=== PATIENT | male | born 1950 | race Caucasian/White ===

== ENCOUNTER 2018-08-15 03:39 | Observation (INO) ==
--- NOTE | 2018-08-15 04:18 | ED ---
HPI General Chief Complaint: Fall Stated Complaint: Fall Time Seen by Provider: 08/15/18 03:48 Source: patient and EMS Mode of arrival: EMS Limitations: no limitations History of Present Illness HPI Narrative: 67-year-old male patient presents to the ER today, states that he got dizzy, fell backward hitting his head against the wall of the bathroom, had a loss of consciousness, and is now complaining of left hip pain. He was able to crawl out the bathroom several hours later, called the back, is brought in by ambulance. He complains of left hip pain, headache, but denies any other injuries. He denies any chest pains, trouble breathing, vomiting, or other symptoms. Modifying Factors: None Associated Signs & Symptoms: Dizziness, fall, head injury, left hip injury Risk Factors: Elderly Related Data Allergies Allergy/AdvReac Type Severity Reaction Status Date / Time codeine Allergy Unknown unknown Verified 08/15/18 04:10 Review of Systems ROS: all other systems reviewed are negative FOR[facility]LY [facility] Medical History Medical History Agent orange exposure (Acute) Emphysema lung (Acute) Pacemaker (Acute) Parkinson disease (Acute) Social History Social History Substance History: No History of Abuse Smoking Status: Current every day smoker Tobacco Type: Cigarettes How Often Do You Have a Drink Containing Alcohol: 2 to 3 times a week Recent Travel in [facility] within the Last 8 Weeks: No Recent Out of Country Travel within the Last 8 Weeks: No Immunization History Tetanus Immunization: Unsure Exam Narrative Exam Narrative: GENERAL: Well-developed elderly male patient currently in moderate distress. Awake, alert, oriented x3. Tremulous with pill-rolling. SKIN: Focused skin assessment warm/dry. HEAD: Atraumatic. Normocephalic. EYES: Pupils equal and round. No scleral icterus. No injection or drainage. ENT: No nasal bleeding or discharge. Mucous membranes pink and moist. NECK: Trachea midline. No JVD. CARDIOVASCULAR: Regular rate and rhythm. No murmur appreciated. RESPIRATORY: No accessory muscle use. Clear to auscultation. Breath sounds equal bilaterally. GASTROINTESTINAL: Abdomen soft, non-tender, nondistended. Hepatic and splenic margins not palpable. MUSCULOSKELETAL: No obvious deformities. No clubbing. No cyanosis. No edema. Pelvis stable, tender to palpation of the left hip area. Neurovascularly intact below the left hip injury. No obvious deformities identified. Equal leg lengths. NEUROLOGICAL: Awake and alert. No obvious cranial nerve deficits. Motor grossly within normal limits. Normal speech. Pill-rolling tremors. PSYCHIATRIC: Appropriate mood and affect; insight and judgment normal. Course Initial Documented Vital Signs Pulse Rate 84 08/15/18 04:00 Blood Pressure 129/79 08/15/18 04:00 Pulse Oximetry 100 08/15/18 04:00 Last Documented Vital Signs Pulse Rate 84 08/15/18 04:07 Blood Pressure 129/79 08/15/18 04:07 Pulse Oximetry 100 08/15/18 04:07 Medical Decision Making MDM Narrative Medical decision making narrative: Lab work is fairly unremarkable. EKG shows a paced rhythm. X-rays did not show any signs of obvious acute fractures of the hip. Chest x-ray was unremarkable. However, when the patient is stood up in order to walk to the bathroom, he literally is not able to put much weight on his right hip, and is having difficulty walking. He lives alone, and at this point, there is concern for need for PT and patient well-being if I were to release him home. My plan will be to admit him at this point for further evaluation of his dizziness episode as well as ambulation. He states he feels weak on the right leg due to pain. Case is discussed with Dr. Gonzalez for admission. Medical Screen Exam Complete: Yes Emergency Medical Condition: Yes Differential Diagnosis Differential Diagnosis: Syncope versus intracranial injuries versus vertigo versus electrolyte abnormalities Lab Data Lab results reviewed: Yes I reviewed the patient's lab results. Result diagrams: 08/15/18 04:15 08/15/18 04:15 Lab Results 08/15/18 08/15/18 08/15/18 Range/Units 04:15 04:15 05:48 WBC 9.3 (4.0-11.0) th/mm3 RBC 4.31 L (4.50-5.90) mil/mm3 Hgb 14.9 (13.0-17.0) gm/dL Hct 40.9 (39.0-51.0) % MCV 94.8 (80.0-100.0) fL MCH 34.7 H (27.0-34.0) pg MCHC 36.6 H (32.0-36.0) % RDW 12.9 (11.6-17.2) % Plt Count 128 L (150-450) th/mm3 MPV 8.9 (7.0-11.0) fL Prelim Diff (Auto) Slide review pending Neut % (Auto) 82.1 H (16.0-70.0) % Lymph % (Auto) 12.7 (9.0-44.0) % Stanley % (Auto) 4.3 (0.0-8.0) % Eos % (Auto) 0.4 (0.0-4.0) % Baso % (Auto) 0.5 (0.0-2.0) % Neut # (Auto) 7.6 (1.8-7.7) th/mm3 Lymph # (Auto) 1.2 (1.0-4.8) th/mm3 Stanley # (Auto) 0.4 (0.0-0.9) th/mm3 Eos # (Auto) 0.0 (0.0-0.4) th/mm3 Baso # (Auto) 0.0 (0.0-0.2) th/mm3 WBC Differential . Diff Scan Auto diff confirmed Differential Comment . Platelet Estimate Low L (Normal) Platelet Morphology Normal (Normal) Sodium 131 L (136-145) meq/L Potassium 3.9 (3.5-5.1) meq/L Chloride 98 (98-107) meq/L Carbon Dioxide 22.4 (21.0-32.0) meq/L Anion Gap 11 (5-15) meq/L BUN 12 (7-18) mg/dL Creatinine 1.31 H (0.60-1.30) mg/dL Estimated GFR 55 L (>89) mL/min Random Glucose 82 (74-106) mg/dL Calcium 8.7 (8.5-10.1) mg/dL Total Bilirubin 0.7 (0.2-1.0) mg/dL AST 33 (15-37) U/L ALT 48 (12-78) U/L Alkaline Phosphatase 75 (45-117) U/L Troponin I 0.03 (0.02-0.05) ng/mL Total Protein 7.6 (6.4-8.2) g/dL Albumin 4.0 (3.4-5.0) g/dL Urine Color (Yellw/Straw) Urine Clarity (Clear) Urine pH (5.0-8.5) Ur Specific Capulin (1.002-1.035) Urine Protein (Neg-Trace) mg/dL Urine Glucose (UA) (Negative) mg/dL Urine Ketones (Negative) mg/dL Urine Occult Blood (Negative) Urine Nitrate (Negative) Urine Bilirubin (Negative) Urine Urobilinogen (Less than 2) mg/dL Ur Leukocyte Esterase (Negative) Urine RBC (0-3) /hpf Urine WBC (0-5) /hpf Hyaline Casts (0-3) /lpf Urine Mucus (Occasional) /lpf Micro UA Comment Ur Microscopic Review Urine Culture Comments Urine Opiates Screen Neg (Neg) Ur Barbiturates Screen Neg (Neg) Ur Amphetamines Screen Neg (Neg) U Benzodiazepines Scrn Neg (Neg) Urine Cocaine Screen Neg (Neg) U Cannabinoids Screen Neg (Neg) 08/15/18 Range/Units 05:48 WBC (4.0-11.0) th/mm3 RBC (4.50-5.90) mil/mm3 Hgb (13.0-17.0) gm/dL Hct (39.0-51.0) % MCV (80.0-100.0) fL MCH (27.0-34.0) pg MCHC (32.0-36.0) % RDW (11.6-17.2) % Plt Count (150-450) th/mm3 MPV (7.0-11.0) fL Prelim Diff (Auto) Neut % (Auto) (16.0-70.0) % Lymph % (Auto) (9.0-44.0) % Stanley % (Auto) (0.0-8.0) % Eos % (Auto) (0.0-4.0) % Baso % (Auto) (0.0-2.0) % Neut # (Auto) (1.8-7.7) th/mm3 Lymph # (Auto) (1.0-4.8) th/mm3 Stanley # (Auto) (0.0-0.9) th/mm3 Eos # (Auto) (0.0-0.4) th/mm3 Baso # (Auto) (0.0-0.2) th/mm3 WBC Differential Diff Scan Differential Comment Platelet Estimate (Normal) Platelet Morphology (Normal) Sodium (136-145) meq/L Potassium (3.5-5.1) meq/L Chloride (98-107) meq/L Carbon Dioxide (21.0-32.0) meq/L Anion Gap (5-15) meq/L BUN (7-18) mg/dL Creatinine (0.60-1.30) mg/dL Estimated GFR (>89) mL/min Random Glucose (74-106) mg/dL Calcium (8.5-10.1) mg/dL Total Bilirubin (0.2-1.0) mg/dL AST (15-37) U/L ALT (12-78) U/L Alkaline Phosphatase (45-117) U/L Troponin I (0.02-0.05) ng/mL Total Protein (6.4-8.2) g/dL Albumin (3.4-5.0) g/dL Urine Color Yellow (Yellw/Straw) Urine Clarity Clear (Clear) Urine pH 5.0 (5.0-8.5) Ur Specific Capulin 1.009 (1.002-1.035) Urine Protein Negative (Neg-Trace) mg/dL Urine Glucose (UA) Negative (Negative) mg/dL Urine Ketones Trace H (Negative) mg/dL Urine Occult Blood Negative (Negative) Urine Nitrate Negative (Negative) Urine Bilirubin Negative (Negative) Urine Urobilinogen Less than 2 (Less than 2) mg/dL Ur Leukocyte Esterase Negative (Negative) Urine RBC Less than 1 (0-3) /hpf Urine WBC Less than 1 (0-5) /hpf Hyaline Casts 3 (0-3) /lpf Urine Mucus Few H (Occasional) /lpf Micro UA Comment Culture not ind Ur Microscopic Review Not Reportable Urine Culture Comments Culture not ind Urine Opiates Screen (Neg) Ur Barbiturates Screen (Neg) Ur Amphetamines Screen (Neg) U Benzodiazepines Scrn (Neg) Urine Cocaine Screen (Neg) U Cannabinoids Screen (Neg) Imaging Data Attestation: I personally reviewed and interpreted this imaging study as follows : Radiologist's impression: Chest X-Ray 08/15/18 04:10 CONCLUSION: Pacemaker in good position. Lungs are clear. Head CT 08/15/18 04:10 CONCLUSION: 1. Negative CT Head non contrast. . Hip X-Ray 08/15/18 04:10 CONCLUSION: No evidence of recent bony injury. Hip X-Ray 08/15/18 04:32 CONCLUSION: No evidence of an acute fracture. Calcific tendinopathy along the gluteal insertion ECG Data Attestation: I personally reviewed and interpreted this ECG as follows: Interpretation: EKG shows a paced rhythm at a rate of 83 bpm. Discharge Plan Discharge Disposition Patient Disposition: ED Admit(ED Internal Use Only) Discharge Condition Condition: Stable Discharge Order Discharge Orders: ED Use Only Admit Order (Routine); Ordered 08/15/18 Ordered By: Yakov Murray Discharge Details Anticipated Discharge Date: 08/15/18 Diagnosis: Concussion with loss of consciousness, Hip injury, Syncope Physicians Team ED Provider: Yakov Murray Primary Care Provider: Primary Care Physici,No Discharge Interventions Interventions: Vital Signs Last Done: 08/15/18 04:07 Status ED Status: With Doctor
[2018-08-15 04:40] LABS: Baso % (Auto) 0.5 % (0.0-2.0); Eos % (Auto) 0.4 % (0.0-4.0); Hematocrit 40.9 % (39.0-51.0); Hemoglobin 14.9 gm/dL (13.0-17.0); Lymph # (Auto) 1.2 th/mm3 (1.0-4.8); Lymph % (Auto) 12.7 % (9.0-44.0); Mean Corpuscular Hemoglobin 34.7 pg (27.0-34.0); Mean Corpuscular Volume 94.8 fL (80.0-100.0); Mean Platelet Volume 8.9 fL (7.0-11.0); Mono # (Auto) 0.4 th/mm3 (0.0-0.9); Mono % (Auto) 4.3 % (0.0-8.0); Neut # (Auto) 7.6 th/mm3 (1.8-7.7); Neut % (Auto) 82.1 % (16.0-70.0); Platelet Count 128 th/mm3 (150-450); Red Blood Count 4.31 mil/mm3 (4.50-5.90); Red Cell Distribution Width 12.9 % (11.6-17.2); White Blood Count 9.3 th/mm3 (4.0-11.0)
--- NOTE | 2018-08-15 04:40 | CT ---
EXAM DATE: 08/15/2018 4:28 AM EST AGE/SEX: 67 years / Male INDICATIONS: Fall, hit posterior head on wall. CLINICAL DATA: This is the patient's initial encounter. Patient reports that signs and symptoms have been present for 1 day and indicates a pain score of 8/10. MEDICAL/SURGICAL HISTORY: Emphysema. Parkinson's disease. Pacemaker. RADIATION DOSE: 29.19 CTDI (mGy) COMPARISON: No prior exams available for comparison. TECHNIQUE: CT of the head without contrast. Using automated exposure control and adjustment of the mA and/or kV according to patient size, radiation dose was kept as low as reasonably achievable to ob tain optimal diagnostic quality images. DICOM format image data is available electronically for revi ew and comparison. FINDINGS: Cerebrum: The ventricles are normal for age. No evidence of midline shift, mass lesion, hemorrhage or acute infarction. No extraaxial fluid collections are seen. Posterior Fossa: The cerebellum and brainstem are intact. The 4th ventricle is midline. The cerebe llopontine angle is unremarkable. Extracranial: The visualized portion of the orbits is intact. Skull: The calvaria is intact. No evidence of skull fracture. CONCLUSION: 1. Negative CT Head non contrast. . Electronically signed by: Veto Burk MD Board Certified Radiologist 08/15/2018 4:39 AM EST
[2018-08-15 04:49] LABS: Alanine Aminotransferase 48 U/L (12-78); Anion Gap 11 meq/L (5-15); Aspartate Aminotransferase 33 U/L (15-37); Blood Urea Nitrogen 12 mg/dL (7-18); Calcium 8.7 mg/dL (8.5-10.1); Carbon Dioxide 22.4 meq/L (21.0-32.0); Chloride 98 meq/L (98-107); Glomerular Filtration Rate 55 mL/min (>89); Glucose,Random 82 mg/dL (74-106); Potassium 3.9 meq/L (3.5-5.1); Sodium 131 meq/L (136-145)
[2018-08-15 04:52] LABS: Mean Corpuscular HGB Conc 36.6 % (32.0-36.0)
[2018-08-15 04:53] LABS: Alkaline Phosphatase 75 U/L (45-117); Total Protein 7.6 g/dL (6.4-8.2); Troponin I 0.03 ng/mL (0.02-0.05)
--- NOTE | 2018-08-15 05:21 | XR ---
EXAM DATE: 08/15/2018 5:02 AM EST AGE/SEX: 67 years / Male INDICATIONS: Trauma due to fall. CLINICAL DATA: This is the patient's initial encounter. Patient reports that signs and symptoms have been present for 1 day and indicates a pain score of 0/10. MEDICAL/SURGICAL HISTORY: . Emphysema. Parkinson's disease. Pacemaker. COMPARISON: No prior exams available for comparison. FINDINGS: A single AP view of the chest demonstrates the lungs to be symmetrically aerated without evidence of mass, infiltrate or effusion. The cardiomediastinal contours are unremarkable. Osseous structures a re intact. The subclavian multi lead pacer in good position. Lungs are clear. CONCLUSION: Pacemaker in good position. Lungs are clear. Electronically signed by: Veto uBrk MD Board Certified Radiologist 08/15/2018 5:19 AM EST
--- NOTE | 2018-08-15 05:22 | XR ---
EXAM DATE: 08/15/2018 5:03 AM EST AGE/SEX: 67 years / Male INDICATIONS: Pain due to fall. CLINICAL DATA: This is the patient's initial encounter. Patient reports that signs and symptoms have been present for 1 day and indicates a pain score of 9/10. MEDICAL/SURGICAL HISTORY: . Emphysema. Parkinson's disease. Pacemaker. COMPARISON: No prior exams available for comparison. FINDINGS: Bony structures are intact and in normal alignment. Joints are intact without dislocation or signifi cant arthropathy. Osseous density is normal. Soft tissues are unremarkable. No radiopaque foreign bodies seen. CONCLUSION: No evidence of recent bony injury. Electronically signed by: Veto Burk MD Board Certified Radiologist 08/15/2018 5:21 AM EST
--- NOTE | 2018-08-15 05:23 | XR ---
EXAM DATE: 08/15/2018 5:05 AM EST AGE/SEX: 67 years / Male INDICATIONS: Pain due to fall. CLINICAL DATA: This is the patient's initial encounter. Patient reports that signs and symptoms have been present for 1 day and indicates a pain score of 9/10. MEDICAL/SURGICAL HISTORY: . Emphysema. Parkinson's disease. Pacemaker. COMPARISON: . FINDINGS: Bony structures are intact and in normal alignment. Joints are intact without dislocation or signifi cant arthropathy. Osseous density is normal. Desiccation along the greater trochanter likely calcifi c tendinopathy. No radiopaque foreign bodies seen. CONCLUSION: No evidence of an acute fracture. Calcific tendinopathy along the gluteal insertion Electronically signed by: Veto Burk MD Board Certified Radiologist 08/15/2018 5:22 AM EST
[2018-08-15 05:34] LABS: Platelet Morphology Normal (Normal)
[2018-08-15 06:16] LABS: Bilirubin,Urine Negative (Negative); Clarity,Urine Clear (Clear); Color,Urine Yellow (Yellw/Straw); Glucose,Urine (UA) Negative (Negative); Hyaline Casts,Urine 3 /lpf (0-3); Leukocyte Esterase,Urine Negative (Negative); Mucus,Urine Few /lpf (Occasional); Nitrite,Urine Negative (Negative); Specific Gravity,Urine 1.009 (1.002-1.035)
[2018-08-15 06:22] LABS: Amphetamine Screen,Urine Neg (Neg); Barbiturate Screen,Urine Neg (Neg); Cannabinoid Screen,Urine Neg (Neg); Cocaine Screen,Urine Neg (Neg)
[2018-08-15 06:24] LABS: Opiate Screen,Urine Neg (Neg)
[2018-08-15] MEDS ORDERED: Acetaminophen 325 MG Tablet PO PRN (06:41)
[2018-08-15] MEDS ORDERED: Bisacodyl 10 MG Supp RECTAL PRN (06:41)
[2018-08-15] MEDS: Sod Chloride 0.9% Inj 1,000 ML IV.CONT SCH ×2 (07:49→18:37)
--- NOTE | 2018-08-15 08:06 | P.HP ---
History of Present Illness Primary Care Physician: No Primary Care Physician Chief Complaint: fall, hip pain History of Present Illness: 67-year-old male with history of emphysema, COPD, Parkinson's disease, Medtronic pacer/AICD in place, tobacco use, presents with acute onset of dizziness, fall, and hip pain. Patient reports last night he was sleeping in bed, got up to use the restroom, was standing while urinating at the toilet when he all of a sudden became dizzy, fell backwards and hit the back of his head on the bathroom wall, and fell to the ground. He states he believes he briefly lost consciousness after he hit his head on the wall. He states he was on the floor for a couple hours before he was able to crawl out of the bathroom and pull himself up to call 911. He was transported via [facility]. Patient complains of constant 7/10 right anterior hip pain with associated difficulty ambulating, denies any numbness or tingling. He states he has a constant tremor of all extremities secondary to his Parkinson's disease. He denies any chest pain, palpitations, shortness of breath, or nausea/vomiting associated with the episode. He denies any recent fever/chills, cough, abdominal pain, or diarrhea. States he has been eating fairly well. He lives alone, ambulates with a cane, and does still drive. States his closest family lives in [place]. He has no other medical complaints at this time. Of note, patient states he stopped taking his Parkinson's medications because it made him nauseous. He does not know his neurologist or mutuel clerk is. He also is unsure why he has a pacer/AICD. Review of Systems All other systems reviewed negative except as stated in HPI PMFSH - History History Provided By: Patient, Medical Record - Medical History Medical History: Medical History (Last Reviewed 08/15/18 @ 04:14 by Yakov Murray MD) Agent orange exposure Emphysema lung Pacemaker Parkinson disease - Surgical History Surgical History: Surgical History (Last Updated 08/15/18 @ 09:09 by Nan Ugarte) History of permanent cardiac pacemaker placement - Family History Family History: Family History (Last Updated 08/15/18 @ 09:09 by Nan Ugarte) Mother Dementia Heart disease - Social History I have reviewed the patient's Social History: Yes - Tobacco History Tobacco Use In Past 30 Days: Yes Smoking Status: Current every day smoker Tobacco Type: Cigarettes Packs Per Day: 1 - Alcohol History How Often Do You Have a Drink Containing Alcohol: 2 to 3 times a week - Substance Use History Substance History: No History of Abuse - Travel History Recent Travel in the [place] Within the Last 8 Weeks: No Recent Travel Out of the Country Within the Last 8 Weeks: No - Immunization History Tetanus Immunization: Unsure Medications and Allergies Active Medications: Active Medications Acetaminophen (Tylenol) 650 mg PO Q4H PRN PRN Reason: Temp > 100.4 Al Hydroxide/Mg Hydroxide (Milk Of Magnesia Liq) 30 ml PO Q12H PRN PRN Reason: Mild Constipation Bisacodyl (Dulcolax Supp) 10 mg RECTAL DAILY PRN PRN Reason: SEVERE CONSITIPATION Sodium Chloride (Ns Inj) 1,000 mls @ 100 mls/hr IV.CONT .Q10H ROGELIO Last Admin: 08/15/18 07:49 Dose: 100 mls/hr Lactulose (Lactulose Liq) 30 ml PO DAILY PRN PRN Reason: SEVERE CONSITIPATION Ondansetron HCl (Zofran Inj) 4 mg IV.PUSH Q6H PRN PRN Reason: NAUSEA OR VOMITING Senna/Docusate Sodium (Ronda-Colace) 1 tab PO BID ROGELIO Sennosides (Senokot) 17.2 mg PO Q12H PRN PRN Reason: Moderate Constipation Sodium Chloride (Ns Flush) 2 ml IV.FLUSH PRN PRN PRN Reason: FLUSH AFTER USING IV ACCESS Sodium Chloride (Ns Flush) 2 ml IV.FLUSH BID ROGELIO Sodium Chloride (Ns Flush) 2 ml IV.FLUSH PRN PRN PRN Reason: FLUSH AFTER USING IV ACCESS Allergies Allergy/AdvReac Type Severity Reaction Status Date / Time codeine Allergy Unknown unknown Verified 08/15/18 04:10 Home Medications Medication Instructions Recorded Confirmed Type aspirin 81 mg PO DAILY 08/15/18 08/15/18 History Exam Vital signs: Vital Signs 08/15/18 04:00 08/15/18 04:07 Pulse Rate 84 84 Blood Pressure 129/79 129/79 Pulse Oximetry 100 100 Intake & Output 08/14/18 08/15/18 08/15/18 18:59 06:59 18:59 Weight 86.183 kg Narrative: GENERAL: Well-nourished, well-developed pleasant male patient in NAD. Bilateral upper extremity tremor. SKIN: Warm and dry. No rash. HEENT: Normocephalic. Atraumatic. Pupils equal and round. Mucous membranes pink and moist. NECK: Supple. Trachea midline. Nontender. CARDIOVASCULAR: Regular rate and rhythm. No murmur appreciated. RESPIRATORY: No accessory muscle use. Clear to auscultation. Breath sounds equal bilaterally. GASTROINTESTINAL: Abdomen soft, non-tender, nondistended. Normoactive bowel sounds x4. MUSCULOSKELETAL: No obvious deformities. Extremities without clubbing, cyanosis , or edema. Right anterior lateral hip mildly tender to palpation, worse with range of motion exercises. NEUROLOGICAL: Awake and alert. No obvious cranial nerve deficits. Motor grossly within normal limits. Moving all extremities spontaneously. Normal speech. PSYCHIATRIC: Appropriate mood and affect; insight and judgment normal. Results - Labs CBC & Chem 7: 08/15/18 04:15 08/15/18 04:15 Labs: Laboratory Results - last 24 hr 08/15/18 08/15/18 08/15/18 04:15 04:15 05:48 WBC 9.3 RBC 4.31 L Hgb 14.9 Hct 40.9 MCV 94.8 MCH 34.7 H MCHC 36.6 H RDW 12.9 Plt Count 128 L MPV 8.9 Prelim Diff (Auto) Slide review pending Neut % (Auto) 82.1 H Lymph % (Auto) 12.7 [place] % (Auto) 4.3 Eos % (Auto) 0.4 Baso % (Auto) 0.5 Neut # (Auto) 7.6 Lymph # (Auto) 1.2 [place] # (Auto) 0.4 Eos # (Auto) 0.0 Baso # (Auto) 0.0 WBC Differential . Diff Scan Auto diff confirmed Differential Comment . Platelet Estimate Low L Platelet Morphology Normal Sodium 131 L Potassium 3.9 Chloride 98 Carbon Dioxide 22.4 Anion Gap 11 BUN 12 Creatinine 1.31 H Estimated GFR 55 L Random Glucose 82 Calcium 8.7 Total Bilirubin 0.7 AST 33 ALT 48 Alkaline Phosphatase 75 Troponin I 0.03 Total Protein 7.6 Albumin 4.0 Urine Color Urine Clarity Urine pH Ur Specific [place] Urine Protein Urine Glucose (UA) Urine Ketones Urine Occult Blood Urine Nitrate Urine Bilirubin Urine Urobilinogen Ur Leukocyte Esterase Urine RBC Urine WBC Hyaline Casts Urine Mucus Micro UA Comment Ur Microscopic Review Urine Culture Comments Urine Opiates Screen Neg Ur Barbiturates Screen Neg Ur Amphetamines Screen Neg U Benzodiazepines Scrn Neg Urine Cocaine Screen Neg U Cannabinoids Screen Neg 08/15/18 05:48 WBC RBC Hgb Hct MCV MCH MCHC RDW Plt Count MPV Prelim Diff (Auto) Neut % (Auto) Lymph % (Auto) [place] % (Auto) Eos % (Auto) Baso % (Auto) Neut # (Auto) Lymph # (Auto) [place] # (Auto) Eos # (Auto) Baso # (Auto) WBC Differential Diff Scan Differential Comment Platelet Estimate Platelet Morphology Sodium Potassium Chloride Carbon Dioxide Anion Gap BUN Creatinine Estimated GFR Random Glucose Calcium Total Bilirubin AST ALT Alkaline Phosphatase Troponin I Total Protein Albumin Urine Color Yellow Urine Clarity Clear Urine pH 5.0 Ur Specific [place] 1.009 Urine Protein Negative Urine Glucose (UA) Negative Urine Ketones Trace H Urine Occult Blood Negative Urine Nitrate Negative Urine Bilirubin Negative Urine Urobilinogen Less than 2 Ur Leukocyte Esterase Negative Urine RBC Less than 1 Urine WBC Less than 1 Hyaline Casts 3 Urine Mucus Few H Micro UA Comment Culture not ind Ur Microscopic Review Not Reportable Urine Culture Comments Culture not ind Urine Opiates Screen Ur Barbiturates Screen Ur Amphetamines Screen U Benzodiazepines Scrn Urine Cocaine Screen U Cannabinoids Screen - Imaging Impressions Chest X-Ray 08/15/18 04:10 CONCLUSION: Pacemaker in good position. Lungs are clear. Head CT 08/15/18 04:10 CONCLUSION: 1. Negative CT Head non contrast. . Hip X-Ray 08/15/18 04:10 CONCLUSION: No evidence of recent bony injury. Hip X-Ray 08/15/18 04:32 CONCLUSION: No evidence of an acute fracture. Calcific tendinopathy along the gluteal insertion Caprini VTE Risk Assessment Caprini VTE Risk Assessment: Moderate/High Risk (score >= 2) Caprini Risk Assessment Model: Point Value = 1 Point Value = 2 Point Value = 3 Point Value = 5 Age 41-60 Minor surgery BMI > 25 kg/m2 Swollen legs Varicose veins or History of unexplained or recurrent spontaneous Oral contraceptives or hormone replacement Sepsis (< 1 month) Serious lung disease, including pneumonia (< 1 month) Abnormal pulmonary function Acute myocardial infarction Congestive heart failure (< 1 month) History of inflammatory bowel disease Medical patient at bed rest Age 61-74 Arthroscopic surgery Major open surgery (> 45 min) Laparoscopic surgery (> 45 min) Malignancy Confined to bed (> 72 hours) Immobilizing plaster cast Central venous access Age >= 75 History of VTE Family history of VTE Factor V Leiden Prothrombin [id number] Lupus anticoagulant Anticardiolipin antibodies Elevated serum homocysteine Heparin-induced thrombocytopenia Other congenital or acquired thrombophilia Stroke (< 1 month) Elective arthroplasty Hip, pelvis, or leg fracture Acute spinal cord injury (< 1 month) Prophylaxis Regimen: Total Risk Factor Score Risk Level Prophylaxis Regimen 0-1 Low Early ambulation 2 Moderate Order ONE of the following: *Sequential Compression Device (SCD) *Heparin 5000 units SQ BID 3-4 Higher Order ONE of the following medications: *Heparin 5000 units SQ TID *Enoxaparin/Lovenox 40 mg SQ daily (WT < 150 kg, CrCl > 30 mL/min) *Enoxaparin/Lovenox 30 mg SQ daily (WT < 150 kg, CrCl > 10-29 mL/min) *Enoxaparin/Lovenox 30 mg SQ BID (WT < 150 kg, CrCl > 30 mL/min) AND/OR *Sequential Compression Device (SCD) 5 or more Highest Order ONE of the following medications: *Heparin 5000 units SQ TID (Preferred with Epidurals) *Enoxaparin/Lovenox 40 mg SQ daily (WT < 150 kg, CrCl > 30 mL/min) *Enoxaparin/Lovenox 30 mg SQ daily (WT < 150 kg, CrCl > 10-29 mL/min) *Enoxaparin/Lovenox 30 mg SQ BID (WT < 150 kg, CrCl > 30 mL/min) AND *Sequential Compression Device (SCD) Assessment and Plan - Plan 67-year-old male with history of emphysema, COPD, Parkinson's disease, Medtronic pacer/AICD in place, tobacco use, presents with acute onset of dizziness, fall, and hip pain. Fall/Syncope with Closed Head Injury: Acute, possibly secondary to Parkinson's disease, orthostatic hypotension, dehydration, rule out other etiologies. -Head CT reviewed and unremarkable -Check orthostatics -Give IV fluid hydration -Monitor on telemetry, neurochecks -Interrogate Medtronic pacemaker -Check echocardiogram -Trend serial cardiac enzymes, although no complaints of chest pain -Consult PT Right hip pain: Status post fall -Right hip x-ray done in the ED, no acute findings -Pain control with Tylenol as needed add analgesics as needed -Consider hip CT if no improvement SUDHA: Cr 1.31, no previous labs to compare, patient dry on exam -Give IV fluid hydration -Avoid nephrotoxins -Monitor BMP Hyponatremia: Sodium 131, likely secondary to dehydration -Giving IV fluid hydration -Monitor sodium Parkinson's disease: Chronic. Patient admits to stopping his Parkinson's medications secondary to side effects of nausea -Recommend outpatient follow-up with neurologist -PT consulted as above Emphysema/COPD: Not in exacerbation, no wheezing on exam -Duo nebs as needed Tobacco use: Chronic -Counseled on cessation DVT prophylaxis: Teds/SCDs Patient currently lives alone, ambulates with a cane, likely requires more assistance at home. Await PT eval.
--- NOTE | 2018-08-15 08:29 | ECG ---
Date Performed: 08/15/2018 Time Performed: 04:01:32 PTAGE: 67 years EKG: ELECTRONIC VENTRICULAR PACEMAKER ABNORMAL RHYTHM ECG INTERPRETATION BASED ON A DEFAULT AGE OF 40 YEARS NO PREVIOUS TRACING DOCTOR: Veto Carvalho Interpretating Date/Time 08/15/2018 08:28:33
[2018-08-15] MEDS: Senna/Docusate Sodium 8.6/50 MG Tablet PO SCH (09:47)
--- NOTE | 2018-08-15 19:00 | ECHRPT ---
Indication: Syncope CONCLUSIONS The left ventricular systolic function is normal with an estimated ejection fraction in the range of 55-60%. A pacemaker wire is noted. Normal atrial septal thickness. Trace mitral valve regurgitation. There is trace tricuspid valve regurgitation. The estimated pulmonary arterial pressure is 38 mmHg. BP: / HR: Rhythm: MEASUREMENTS (Male / Female) Normal Values Technical Quality:Very technically difficult study DOPPLER AV Peak Velocity 139.0 cm/s AV Peak Gradient 7.7 mmHg LVOT Peak Velocity 100.0 cm/s LVOT Peak Gradient 4.0 mmHg Mitral E Point Velocity 60.7 cm/s Mitral A Point Velocity 109.0 cm/s Mitral E to A Ratio 0.6 LV E' Lateral Velocity 7.7 cm/s Mitral E to LV E' Lateral Ratio 7.9 LV E' Septal Velocity 6.9 cm/s Mitral E to LV E' Septal Ratio 8.8 TR Peak Velocity 262.0 cm/s TR Peak Gradient 27.5 mmHg Right Atrial Pressure 10.0 mmHg Pulmonary Artery Systolic Pressu 37.5 mmHg Right Ventricular Systolic Press 37.5 mmHg FINDINGS LEFT VENTRICLE The left ventricular systolic function is normal with an estimated ejection fraction in the range of 55-60%. RIGHT VENTRICLE A pacemaker wire is noted. LEFT ATRIUM The left atrial size is normal. RIGHT ATRIUM The right atrium is not well visualized. ATRIAL SEPTUM Normal atrial septal thickness. AORTA The aortic root and proximal ascending aorta are normal in size on limited imaging. MITRAL VALVE Trace mitral valve regurgitation. AORTIC VALVE The aortic valve is not well visualized. TRICUSPID VALVE There is trace tricuspid valve regurgitation. The estimated pulmonary arterial pressure is 38 mmHg. PULMONARY VALVE The pulmonary valve is not well visualized. VESSELS The inferior vena cava was not well visualized. Antoine Donis MD, FACC, [facility] (Electronically Signed) Final Date:15 August 2018 18:59
[2018-08-16] MEDS: Senna/Docusate Sodium 8.6/50 MG Tablet PO SCH ×3 (02:24→20:46)
[2018-08-16] MEDS: Sod Chloride 0.9% Inj 1,000 ML IV.CONT SCH ×2 (05:12→14:21)
[2018-08-16 05:40] LABS: Baso % (Auto) 0.7 % (0.0-2.0); Eos % (Auto) 0.8 % (0.0-4.0); Hematocrit 40.8 % (39.0-51.0); Hemoglobin 14.5 gm/dL (13.0-17.0); Lymph # (Auto) 1.3 th/mm3 (1.0-4.8); Lymph % (Auto) 24.8 % (9.0-44.0); Mean Corpuscular HGB Conc 35.6 % (32.0-36.0); Mean Corpuscular Hemoglobin 34.4 pg (27.0-34.0); Mean Corpuscular Volume 96.6 fL (80.0-100.0); Mean Platelet Volume 8.5 fL (7.0-11.0); Mono # (Auto) 0.4 th/mm3 (0.0-0.9); Mono % (Auto) 7.2 % (0.0-8.0); Neut # (Auto) 3.5 th/mm3 (1.8-7.7); Neut % (Auto) 66.5 % (16.0-70.0); Platelet Count 111 th/mm3 (150-450); Red Blood Count 4.22 mil/mm3 (4.50-5.90); Red Cell Distribution Width 13.2 % (11.6-17.2); White Blood Count 5.3 th/mm3 (4.0-11.0)
[2018-08-16 06:10] LABS: Albumin 3.8 g/dL (3.4-5.0); Anion Gap 9 meq/L (5-15); Aspartate Aminotransferase 28 U/L (15-37); Blood Urea Nitrogen 15 mg/dL (7-18); Calcium 8.8 mg/dL (8.5-10.1); Chloride 105 meq/L (98-107); Glomerular Filtration Rate 59 mL/min (>89); Glucose,Random 94 mg/dL (74-106); Potassium 3.8 meq/L (3.5-5.1); Sodium 138 meq/L (136-145)
[2018-08-16 06:11] LABS: Alanine Aminotransferase 36 U/L (12-78)
[2018-08-16 06:13] LABS: Alkaline Phosphatase 69 U/L (45-117); Total Protein 7.3 g/dL (6.4-8.2)
[2018-08-16] MEDS: Lisinopril 10 MG Tablet PO SCH ×2 (14:00→23:30)
--- NOTE | 2018-08-16 14:30 | P.PN ---
Subjective Interval history: Patient seen around 9:30am. Follow-up for fall, syncope, hip pain. The patient reports overall feeling better today. He states his hip pain has improved and he is now able to lie on his right side. He states he has been able to ambulate around his room without much difficulty. PT recommending rehab and walker. The patient only has a cane at home, therefore case management to assist with supplying walker. Patient adamantly does not want to go to any rehab facility. He wants to go home. He states he does just fine on his own, but would agree to home health care visiting him if recommended. He denies any further dizziness or lightheadedness. Denies ever having any chest pain, shortness of breath, or abdominal complaints. Physical Exam Vital signs: Vital Signs 08/15/18 20:00 08/16/18 00:00 08/16/18 04:00 Temperature 98.8 F 98.1 F 98.0 F Pulse Rate 81 67 78 Respiratory Rate 18 18 18 Blood Pressure 120/68 151/86 H 140/68 Pulse Oximetry 95 96 95 08/16/18 08:00 08/16/18 12:00 Temperature 98.1 F 98.4 F Pulse Rate 71 88 Respiratory Rate 16 14 Blood Pressure 148/94 H 117/77 Pulse Oximetry 99 97 Intake & Output 08/15/18 08/16/18 08/16/18 18:59 06:59 18:59 Intake Total 1000 / 1000 1000 / 1000 Balance 1000 / 1000 1000 / 1000 Weight 84.302 kg 83.7 kg Intake: IV 1000 / 1000 1000 / 1000 NS Inj 1,000 ML @ 100 mls/hr IV 1000 / 1000 1000 / 1000 .CONT .Q10H [facility] Rx#:[id number] Other: Weight On Admission 84.302 kg Narrative: GENERAL: Well-nourished, well-developed pleasant male patient in NAD. Bilateral upper extremity tremor. SKIN: Warm and dry. No rash. HEENT: Normocephalic. Atraumatic. Pupils equal and round. Mucous membranes pink and moist. CARDIOVASCULAR: Regular rate and rhythm. No murmur appreciated. RESPIRATORY: No accessory muscle use. Clear to auscultation. Breath sounds equal bilaterally. GASTROINTESTINAL: Abdomen soft, non-tender, nondistended. Normoactive bowel sounds x4. MUSCULOSKELETAL: No obvious deformities. Extremities without clubbing, cyanosis , or edema. NEUROLOGICAL: Awake and alert. No obvious cranial nerve deficits. Moving all extremities spontaneously. Normal speech. PSYCHIATRIC: Appropriate mood and affect; insight and judgment normal. Results - Labs CBC & Chem 7: 08/16/18 04:47 08/16/18 04:47 Laboratory Results - last 24 hr 08/15/18 08/16/18 08/16/18 18:39 04:47 04:47 WBC 5.3 RBC 4.22 L Hgb 14.5 Hct 40.8 MCV 96.6 MCH 34.4 H MCHC 35.6 RDW 13.2 Plt Count 111 L MPV 8.5 Neut % (Auto) 66.5 Lymph % (Auto) 24.8 [place] % (Auto) 7.2 Eos % (Auto) 0.8 Baso % (Auto) 0.7 Neut # (Auto) 3.5 Lymph # (Auto) 1.3 [place] # (Auto) 0.4 Eos # (Auto) 0.0 Baso # (Auto) 0.0 WBC Differential . Differential Comment Auto diff final Sodium 138 Potassium 3.8 Chloride 105 Carbon Dioxide 24.0 Anion Gap 9 BUN 15 Creatinine 1.23 Estimated GFR 59 L Random Glucose 94 Calcium 8.8 Total Bilirubin 0.9 AST 28 ALT 36 Alkaline Phosphatase 69 Troponin I 0.04 Total Protein 7.3 Albumin 3.8 - Imaging Chest X-Ray 08/15/18 04:10 CONCLUSION: Pacemaker in good position. Lungs are clear. Head CT 08/15/18 04:10 CONCLUSION: 1. Negative CT Head non contrast. . Hip X-Ray 08/15/18 04:10 CONCLUSION: No evidence of recent bony injury. Hip X-Ray 08/15/18 04:32 CONCLUSION: No evidence of an acute fracture. Calcific tendinopathy along the gluteal insertion Assessment and Plan - Plan 67-year-old male with history of emphysema, COPD, Parkinson's disease, Medtronic pacer/AICD in place, tobacco use, presents with acute onset of dizziness, fall, and hip pain. Fall/Syncope with Closed Head Injury: Acute, possibly secondary to Parkinson's disease, orthostatic hypotension, dehydration, rule out other etiologies. -Head CT reviewed and unremarkable -Check orthostatics -Give IV fluid hydration -Monitor on telemetry, neurochecks -Interrogated Medtronic pacemaker, no acute findings -Echocardiogram unremarkable with EF 55-60% -ACS ruled out with negative serial cardiac enzymes x3, and patient with no complaints of chest pain -Consult PT, recommending rehab, however patient refusing Right hip pain: Status post fall -Right hip x-ray done in the ED, no acute findings -Pain control with Tylenol as needed add analgesics as needed -Symptoms improving, PT recommending a walker, case management to assist SUDHA: Cr 1.31, no previous labs to compare, patient dry on exam -Give IV fluid hydration -Avoid nephrotoxins -BMP improving with creatinine 1.23 today Hyponatremia: Sodium 131, likely secondary to dehydration -Giving IV fluid hydration -Sodium 138 today, resolved Parkinson's disease: Chronic. Patient admits to stopping his Parkinson's medications secondary to side effects of nausea -Recommend outpatient follow-up with neurologist -PT consulted as above Emphysema/COPD: Not in exacerbation, no wheezing on exam -Duo nebs as needed Tobacco use: Chronic -Counseled on cessation DVT prophylaxis: Teds/SCDs Patient currently lives alone, ambulates with a cane, likely requires more assistance at home. Discharge Planning: PT recommending rehab, however patient is refusing rehab placement. Concern for unsafe discharge right now as the patient is still very unsteady according to physical therapy note. Will request repeat PT evaluation today. 1500 Hours: Notified by RN that the patient wants to leave AGAINST MEDICAL ADVICE. RN reports he is AAO x4, and has already requested a friend to pick him up and take him home. This patient understands the risks of leaving, including permanent disability and/or , and has had an opportunity to ask questions about his condition. The patient has been informed that he may return for care at any time, and follow up has been advised. 1605hrs: Notified by RN that patient made it out to ED lobby and then was witnessed with hallucinations and very unsteady gait, unable to maintain standing. Still threatening to leave AMA. Since patient's mental status has changed with reported hallucinations, will request psychiatry evaluation. Also question capacity to make medical decisions. Patient unsafe discharge at this time. Instructed RN to request security assistance to keep the patient in the hospital if he attempts to leave, at least until capacity for medical decision making can be determined.
[2018-08-17] MEDS: Sod Chloride 0.9% Inj 1,000 ML IV.CONT SCH ×3 (05:02→10:49)
[2018-08-17] MEDS: Senna/Docusate Sodium 8.6/50 MG Tablet PO SCH ×3 (08:41→21:31)
[2018-08-17] MEDS: Lisinopril 10 MG Tablet PO SCH (08:41)
--- NOTE | 2018-08-17 08:50 | P.PN ---
Subjective Interval history: Follow up for fall, syncope, weakness, hip pain. Patient seen with physical therapist at bedside. Patient reports he is not happy because he feels he is being held here against his will. He is oriented to self, place, and month, but not year or situation. He states he is upset because he did see a cat while he was in the ER yesterday, however people keep telling him that he was hallucinating. Patient lives alone. He has significant tremors which he states has been present for many years, but does agree that they are getting worse. He agrees to speak with a neurologist regarding his Parkinson's disease and will consider starting on medications if recommended. He reports his hip pain is improving. He is still very unsteady with poor balance, and needs assistance even standing up from bed. Again it was recommended that the patient go to rehab, however he continues to decline. Physical Exam Vital signs: Vital Signs 08/16/18 09:15 08/16/18 12:00 08/16/18 18:06 Temperature 98.4 F Pulse Rate 83 88 89 Respiratory Rate 14 16 Blood Pressure 117/77 159/75 H Pulse Oximetry 97 94 L 08/16/18 19:53 08/16/18 20:00 08/17/18 00:00 Temperature 98.6 F 98.6 F Pulse Rate 87 79 78 Respiratory Rate 16 17 18 Blood Pressure 183/89 H 171/80 H Pulse Oximetry 96 95 08/17/18 03:36 08/17/18 07:57 08/17/18 08:05 Temperature 98.1 F 98.3 F Pulse Rate 81 81 81 Respiratory Rate 18 16 15 Blood Pressure 177/92 H 164/86 H Pulse Oximetry 96 95 Intake & Output 08/16/18 08/17/18 08/17/18 18:59 06:59 18:59 Intake Total 600 / 600 480 / 480 Output Total 225 / 225 Balance 600 / 600 255 / 255 Weight 83.2 kg Intake: IV 600 / 600 NS Inj 1,000 ML @ 100 mls/hr IV 600 / 600 .CONT .Q10H [facility] Rx#:[id number] Oral 480 / 480 Output: Urine 225 / 225 Other: # Voids 2 # Incontinent Voids 3 Date of Last Bowel Movement 08/14/18 08/14/18 # Bowel Movements 1 0 Narrative: GENERAL: Well-nourished, well-developed male patient in NAD. Bilateral upper extremity tremor. SKIN: Warm and dry. No rash. HEENT: Normocephalic. Atraumatic. Pupils equal and round. Mucous membranes pink and moist. CARDIOVASCULAR: Regular rate and rhythm. No murmur appreciated. RESPIRATORY: No accessory muscle use. Clear to auscultation. Breath sounds equal bilaterally. GASTROINTESTINAL: Abdomen soft, non-tender, nondistended. Normoactive bowel sounds x4. MUSCULOSKELETAL: No obvious deformities. Extremities without clubbing, cyanosis , or edema. NEUROLOGICAL: Awake and alert, oriented to self/place/month/president, but not year or situation. No obvious cranial nerve deficits. Moving all extremities spontaneously. Normal speech. PSYCHIATRIC: Slightly irritated; insight and judgment questionable. Results - Labs CBC & Chem 7: 08/16/18 04:47 08/16/18 04:47 - Imaging Chest X-Ray 08/15/18 04:10 CONCLUSION: Pacemaker in good position. Lungs are clear. Head CT 08/15/18 04:10 CONCLUSION: 1. Negative CT Head non contrast. . Hip X-Ray 08/15/18 04:10 CONCLUSION: No evidence of recent bony injury. Hip X-Ray 08/15/18 04:32 CONCLUSION: No evidence of an acute fracture. Calcific tendinopathy along the gluteal insertion Assessment and Plan - Plan 67-year-old male with history of emphysema, COPD, Parkinson's disease, Medtronic pacer/AICD in place, tobacco use, presents with acute onset of dizziness, fall, and hip pain. Fall/Syncope with Closed Head Injury: Acute, possibly secondary to Parkinson's disease, orthostatic hypotension, dehydration, rule out other etiologies. -Head CT reviewed and unremarkable -Orthostatics negative -Give IV fluid hydration -Monitor on telemetry, neurochecks -Interrogated Medtronic pacemaker, no acute findings -Echocardiogram unremarkable with EF 55-60% -ACS ruled out with negative serial cardiac enzymes x3, and patient with no complaints of chest pain -Consult PT, recommending rehab, however patient refusing, psych to help determine capacity, unsafe discharge at this time Right hip pain: Status post fall -Right hip x-ray done in the ED, no acute findings -Pain control with Tylenol as needed add analgesics as needed -Symptoms improving, PT recommending a walker, case management to assist Intermittent Agitation: question capacity with this patient, attempted to leave AMA on 08/16 however witnessed extremely unsteady gait and was unable to ambulate to vehicle, also reported possible hallucination -consult psychiatry to help assist with determining capacity and evaluate reported hallucinations SUDHA: Cr 1.31, no previous labs to compare, patient dry on exam -S/p IV fluid hydration -Avoid nephrotoxins -BMP improving, repeat creatinine 1.23 Hyponatremia: Sodium 131, likely secondary to dehydration -Giving IV fluid hydration -Repeat Na 138, resolved Parkinson's disease: Chronic. Patient admits to stopping his Parkinson's medications secondary to side effects of nausea -PT consulted as above, patient with poor balance -consulted neurology, appreciate assistance Emphysema/COPD: Not in exacerbation, no wheezing on exam -Duo nebs as needed Tobacco use: Chronic -Counseled on cessation DVT prophylaxis: Teds/SCDs Discharge Planning: PT recommending rehab, however patient is refusing rehab placement. Concern for unsafe discharge right now as the patient is still very unsteady and requiring assistance with ambulation. Psychiatry consultation pending, question capacity to make medical decisions. Patient unsafe discharge at this time.
--- NOTE | 2018-08-17 13:35 | P.CONNEU ---
History of Present Illness Service: Neurology Primary Care Provider: No Primary Care Physician Chief Complaint: Parkinsons History of Present Illness: 67-year-old male with history of emphysema, COPD, Parkinson's disease, Medtronic pacer/AICD in place, tobacco use, presents with acute onset of dizziness, fall, and hip pain. States he lives alone does not have any children. Has a brother lives in [place]. [facility]es to the [facility] for [facility] healthcare. Was diagnosed with Parkinson 's tremors about 20 years ago. Seen by neurologist at the [facility] facility in [place]. States he took Sinemet but had stomach pain stopped taking it. Does not recollect taking any any other medications. Tremors occur at rest mainly symptoms will affect him with activity. Denies any headache night sweats or chills. Review of Systems All other systems reviewed negative except as stated in HPI PMFSH - History History Provided By: Patient - Medical History Medical History: Medical History (Last Reviewed 08/16/18 @ 15:39 by Colletet Chen) Agent orange exposure Emphysema lung Pacemaker Parkinson disease - Surgical History Surgical History: Surgical History (Last Reviewed 08/16/18 @ 15:39 by Collette Chen) History of permanent cardiac pacemaker placement - Family History Family History: Family History (Last Reviewed 08/16/18 @ 15:39 by Collette Chen) Mother Dementia Heart disease - Tobacco History Second Hand Smoke Exposure: No Tobacco Use In Past 30 Days: No Smoking Status: Heavy tobacco smoker Tobacco Type: Cigarettes Packs Per Day: 1 - Alcohol History How Often Do You Have a Drink Containing Alcohol: 2 to 3 times a week - Substance Use History Substance History: No History of Abuse - Travel History Recent Travel in the [place] Within the Last 8 Weeks: No Recent Travel Out of the Country Within the Last 8 Weeks: No - Immunization History Tetanus Immunization: Unsure Medications and Allergies Active Medications: Active Medications Acetaminophen (Tylenol) 650 mg PO Q4H PRN PRN Reason: Temp > 100.4 Al Hydroxide/Mg Hydroxide (Milk Of Kadie Liq) 30 ml PO Q12H PRN PRN Reason: Mild Constipation Albuterol (Ventolin Hfa Inh) 2 puff INH Q4H PRN PRN Reason: SOB/wheezing Aspirin (Aspirin Chew) 81 mg PO DAILY [facility] Last Admin: 08/17/18 08:40 Dose: 81 mg Bisacodyl (Dulcolax Supp) 10 mg RECTAL DAILY PRN PRN Reason: SEVERE CONSITIPATION Ipratropium [place] (Atrovent Neb) 0.5 mg NEB TID NEB [facility] Last Admin: 08/17/18 08:05 Dose: 0.5 mg Lactulose (Lactulose Liq) 30 ml PO DAILY PRN PRN Reason: SEVERE CONSITIPATION Lisinopril (Prinivil) 10 mg PO DAILY [facility] Last Admin: 08/17/18 08:41 Dose: 10 mg Ondansetron HCl (Zofran Inj) 4 mg IV.PUSH Q6H PRN PRN Reason: NAUSEA OR VOMITING Senna/Docusate Sodium (Ronda-Colace) 1 tab PO BID [facility] Last Admin: 08/17/18 10:12 Dose: Not Given Sennosides (Senokot) 17.2 mg PO Q12H PRN PRN Reason: Moderate Constipation Sodium Chloride (Ns Flush) 2 ml IV.FLUSH BID [facility] Last Admin: 08/17/18 10:19 Dose: Not Given Sodium Chloride (Ns Flush) 2 ml IV.FLUSH PRN PRN PRN Reason: FLUSH AFTER USING IV ACCESS Allergies Allergy/AdvReac Type Severity Reaction Status Date / Time codeine Allergy Unknown unknown Verified 08/15/18 04:10 Home Medications Medication Instructions Recorded Confirmed Type aspirin 81 mg PO DAILY 08/15/18 08/15/18 History Exam Vital signs: Vital Signs 08/16/18 18:06 08/16/18 19:53 08/16/18 20:00 Temperature 98.6 F Pulse Rate 89 87 79 Respiratory Rate 16 16 17 Blood Pressure 159/75 H 183/89 H Pulse Oximetry 94 L 96 08/17/18 00:00 08/17/18 03:36 08/17/18 07:57 Temperature 98.6 F 98.1 F 98.3 F Pulse Rate 78 81 81 Respiratory Rate 18 18 16 Blood Pressure 171/80 H 177/92 H 164/86 H Pulse Oximetry 95 96 95 08/17/18 08:05 08/17/18 12:58 Temperature Pulse Rate 81 83 Respiratory Rate 15 Blood Pressure Pulse Oximetry Intake & Output 08/16/18 08/17/18 08/17/18 18:59 06:59 18:59 Intake Total 600 / 600 480 / 480 Output Total 225 / 225 Balance 600 / 600 255 / 255 Weight 83.2 kg Intake: IV 600 / 600 NS Inj 1,000 ML @ 100 mls/hr IV 600 / 600 .CONT .Q10H [facility] Rx#:[id number] Oral 480 / 480 Output: Urine 225 / 225 Other: # Voids 2 # Incontinent Voids 3 Date of Last Bowel Movement 08/14/18 08/14/18 # Bowel Movements 1 0 Narrative: GENERAL: in NAD, SKIN: Warm and dry. HEAD: Atraumatic. Normocephalic. EYES: Pupils equal and round. No scleral icterus. ENT: No nasal bleeding or discharge. Mucous membranes pink and moist. NECK: Trachea midline. No JVD. CARDIOVASCULAR: Regular rate and rhythm. RESPIRATORY: No accessory muscle use. GASTROINTESTINAL: Abdomen soft, non-tender, nondistended. MUSCULOSKELETAL: Extremities without clubbing, cyanosis, or edema. No obvious deformities. NEUROLOGICAL: Awake and alert. Oriented 2-3, did not know the exact date, bradykinetic, facial hypovolemia hypophonic speech, no aphasia, fluent articulate, No facial asymmetry, OU 3-2mm, eomi, VFF, No drift, mild to moderate high-frequency tremor occurring at rest and with action bilateral upper extremity, mild upper extremity rigidity moving all extremities gravity, mild atrophy in the right calf gastroc, reflexes 1-2+ plantarflexion no clonus gait not assessed secondary fall risk no neglect withdraws to pain PSYCHIATRIC: Calm - Constitutional no acute distress - Routine HEENT Exam Head: Present: normocephalic Eye: Present: EOMI Results - Labs CBC & Chem 7: 08/16/18 04:47 08/16/18 04:47 Review/Management - Diagnosis (1) Parkinsons disease Code(s): G20 - Parkinson's disease Status: Acute Current Visit: Yes (2) Concussion with loss of consciousness Code(s): S06.0X9A - Concussion with loss of consciousness of unspecified duration, initial encounter Status: Acute Current Visit: Yes (3) Hip injury Code(s): S79.919A - Unspecified injury of unspecified hip, initial encounter Status: Acute Current Visit: Yes (4) Syncope Code(s): R55 - Syncope and collapse Status: Acute Current Visit: Yes - Review/Management Plan: Parkinsonism with kinetic tremor Did not tolerate Sinemet in the past although willing to try again Monitor for any emerging Lewy body dementia Recommendation Trial of Sinemet low dose at the time twice daily can be taken with food Trial Inderal 10 mg 3 times daily for kinetic tremor component may also help with the blood pressure Fall precautions Therapy Check TSH B12 Follow exam
--- NOTE | 2018-08-17 15:29 | P.CONPSY ---
Provisional Diagnosis Admission Date: August 15, 2018 06:40 History of Present Illness Service: psychiatry Consult date: 08/17/18 Reason for Consult: [facility] Primary Care Provider: No Primary Care Physician Chief Complaint: Parkinsons History of Present Illness: This is a request for a psychiatric consult. Documentation was reviewed, case was discussed with nursing and patient was evaluated. Patient is a 67-year-old male admitted to the emergency room for a fall and hitting his head. Per nursing he has been medically cleared at this time. We were consulted yesterday after patient had a hallucination where he saw a cat and staff was concerned for medical capacity decision making. Patient is alert and oriented x4. He is pleasant and cooperative with exam. He says the cat was a service animal. Patient denies any auditory hallucinations. No hallucinations noted today. Nursing did not observe any bizarre behavior or bizarre thought patterns or speech patterns and none was elicited. Patient is engaging during the interview. He denies depressed mood. He denies suicidal or homicidal ideation intent or plan. He is eating and sleeping well. He is goal oriented and wants to resume his exercises to improve his physical health. Past psych: Patient says he is required to get an evaluation at the [facility] for depression and an annual basis. He says he does not see a psychiatrist there and is not on any medications. He describes a history of depressive episodes but says "has not everyone?" He denies a history of suicide ideation intent or plan. Denies a history of psychotropic medications. Denies a history of cutting. Past medical: See chart Past Famhx: Older sister and mother have dementia Past Social: Patient has an older brother who lives in [place]. He does not have any kids and lives alone. He is and has no contact with his ex-. His consumption of alcohol is a couple beers a couple times a week. He denies regularly drinking on a daily basis or excessive alcohol consumption or history of alcohol dependence. He denies any other substance use. Review of Systems All other systems reviewed negative except as stated in HPI PMFSH - History History Provided By: Patient - Medical History Medical History: Medical History (Last Reviewed 08/17/18 @ 15:28 by Jemal Pineda DO) Agent orange exposure Emphysema lung Pacemaker Parkinson disease - Surgical History Surgical History: Surgical History (Last Reviewed 08/17/18 @ 15:28 by Jemal Pineda DO) History of permanent cardiac pacemaker placement - Family History Family History: Family History (Last Reviewed 08/16/18 @ 15:39 by Collette Chen) Mother Dementia Heart disease - Tobacco History Second Hand Smoke Exposure: No Tobacco Use In Past 30 Days: No Smoking Status: Heavy tobacco smoker Tobacco Type: Cigarettes Packs Per Day: 1 - Alcohol History How Often Do You Have a Drink Containing Alcohol: 2 to 3 times a week - Substance Use History Substance History: No History of Abuse - Travel History Recent Travel in the [place] Within the Last 8 Weeks: No Recent Travel Out of the Country Within the Last 8 Weeks: No - Immunization History Tetanus Immunization: Unsure Medications and Allergies Active Medications: Active Medications Acetaminophen (Tylenol) 650 mg PO Q4H PRN PRN Reason: Temp > 100.4 Al Hydroxide/Mg Hydroxide (Milk Of Magnesia Liq) 30 ml PO Q12H PRN PRN Reason: Mild Constipation Albuterol (Ventolin Hfa Inh) 2 puff INH Q4H PRN PRN Reason: SOB/wheezing Aspirin (Aspirin Chew) 81 mg PO DAILY [facility] Last Admin: 08/17/18 08:40 Dose: 81 mg Bisacodyl (Dulcolax Supp) 10 mg RECTAL DAILY PRN PRN Reason: SEVERE CONSITIPATION Carbidopa/Levodopa (Sinemet 25/100 Mg) 0.5 tab PO BID [facility] Last Admin: 08/17/18 15:08 Dose: 0.5 tab Ipratropium [place] (Atrovent Neb) 0.5 mg NEB TID NEB [facility] Last Admin: 08/17/18 15:18 Dose: 0.5 mg Lactulose (Lactulose Liq) 30 ml PO DAILY PRN PRN Reason: SEVERE CONSITIPATION Lisinopril (Prinivil) 10 mg PO DAILY [facility] Last Admin: 08/17/18 08:41 Dose: 10 mg Ondansetron HCl (Zofran Inj) 4 mg IV.PUSH Q6H PRN PRN Reason: NAUSEA OR VOMITING Propranolol HCl (Inderal) 10 mg PO TID [facility] Senna/Docusate Sodium (Ronda-Colace) 1 tab PO BID [facility] Last Admin: 08/17/18 10:12 Dose: Not Given Sennosides (Senokot) 17.2 mg PO Q12H PRN PRN Reason: Moderate Constipation Sodium Chloride (Ns Flush) 2 ml IV.FLUSH BID [facility] Last Admin: 08/17/18 10:19 Dose: Not Given Sodium Chloride (Ns Flush) 2 ml IV.FLUSH PRN PRN PRN Reason: FLUSH AFTER USING IV ACCESS Allergies Allergy/AdvReac Type Severity Reaction Status Date / Time codeine Allergy Unknown unknown Verified 08/15/18 04:10 Home Medications Medication Instructions Recorded Confirmed Type aspirin 81 mg PO DAILY 08/15/18 08/15/18 History Exam Vital signs: Vital Signs 08/16/18 18:06 08/16/18 19:53 08/16/18 20:00 Temperature 98.6 F Pulse Rate 89 87 79 Respiratory Rate 16 16 17 Blood Pressure 159/75 H 183/89 H Pulse Oximetry 94 L 96 08/17/18 00:00 08/17/18 03:36 08/17/18 07:57 Temperature 98.6 F 98.1 F 98.3 F Pulse Rate 78 81 81 Respiratory Rate 18 18 16 Blood Pressure 171/80 H 177/92 H 164/86 H Pulse Oximetry 95 96 95 08/17/18 08:05 08/17/18 12:00 08/17/18 12:58 Temperature Pulse Rate 81 83 Respiratory Rate 15 Blood Pressure 125/65 Pulse Oximetry 08/17/18 15:18 Temperature Pulse Rate 80 Respiratory Rate 15 Blood Pressure Pulse Oximetry Intake & Output 08/16/18 08/17/18 08/17/18 18:59 06:59 18:59 Intake Total 600 / 600 480 / 480 170 / 170 Output Total 225 / 225 Balance 600 / 600 255 / 255 170 / 170 Weight 83.2 kg Intake: IV 600 / 600 170 / 170 NS Inj 1,000 ML @ 100 mls/hr IV 600 / 600 170 / 170 .CONT .Q10H [facility] Rx#:[id number] Oral 480 / 480 Output: Urine 225 / 225 Other: # Voids 2 # Incontinent Voids 3 Date of Last Bowel Movement 08/14/18 08/14/18 08/14/18 # Bowel Movements 1 0 Mental Status Examination Appearance: Disheveled Consciousness: Alert Orientation: x4 Motor Activity: Other (Parkinsonian tremor) Speech: Slow Language: Adequate Fund of Knowledge: Adequate Attention and Concentration: Adequate Memory: Unremarkable Mood: Appropriate Affect: Appropriate Thought Process & Associations: Intact Thought Content: Appropriate Hallucination Type: None Delusion Type: None Suicidal Ideation: No Suicidal Plan: No Suicidal Intention: No Homicidal Ideation: No Homicidal Plan: No Homicidal Intention: No Insight: Poor Judgment: Poor Assessment and Plan - Assessment (1) Major depressive disorder, recurrent, in full remission Code(s): F33.42 - Major depressive disorder, recurrent, in full remission Status: Acute - Plan Plan: Patient does not have an identifiable mood or psychotic disorder at this time. She nothing identifiable that would prevent him from making his own medical decisions. Justification for Continued Inpatient Stay: No psychiatric reason
[2018-08-17] MEDS: Propranolol 10 MG Tablet PO SCH (17:50)
[2018-08-17 20:09] LABS: C-Reactive Protein 2.7 mg/dL (0.00-0.30)
[2018-08-17 20:34] LABS: Thyroid Stimulating Hormone 2.12 uIU/mL (0.358-3.740)
--- NOTE | 2018-08-18 08:22 | P.PN ---
Subjective Interval history: Follow-up for fall, syncope, unsteady gait, weakness. Patient reports overall feeling better again today. He does report continued weakness and unsteady gait. He agrees to starting Sinemet and Inderal. He would like to see if the tremors and gait is improved after starting these medications. He is still not quite agreeable to rehab and his goal is to go home hopefully tomorrow. We discussed at this time he is unsafe to go home alone due to high risk of falls. He is hoping to improve with physical therapy today and tomorrow in order to return home. Physical Exam Vital signs: Vital Signs 08/17/18 12:00 08/17/18 12:58 08/17/18 15:18 Temperature Pulse Rate 83 80 Respiratory Rate 15 Blood Pressure 125/65 Pulse Oximetry 08/17/18 15:58 08/17/18 20:00 08/17/18 20:32 Temperature 98.3 F 98.2 F Pulse Rate 78 60 62 Respiratory Rate 16 20 17 Blood Pressure 123/59 L 129/66 Pulse Oximetry 96 97 08/17/18 23:40 08/18/18 04:00 08/18/18 07:36 Temperature 97.9 F 97.8 F Pulse Rate 68 70 67 Respiratory Rate 17 17 18 Blood Pressure 117/67 168/84 H Pulse Oximetry 97 97 08/18/18 08:11 Temperature 97.8 F Pulse Rate 69 Respiratory Rate 17 Blood Pressure 178/83 H Pulse Oximetry 97 Intake & Output 08/17/18 08/18/18 08/18/18 18:59 06:59 18:59 Intake Total 670 / 670 Output Total 2 / 2 Balance 668 / 668 Weight 83.2 kg Intake: IV 170 / 170 NS Inj 1,000 ML @ 100 mls/hr IV 170 / 170 .CONT .Q10H [facility] Rx#:[id number] Oral 500 / 500 Output: Urine 2 / 2 Other: Date of Last Bowel Movement 08/14/18 08/14/18 Narrative: GENERAL: Well-nourished, well-developed male patient in NAD. Bilateral upper extremity tremor with slow movements and rigidity. SKIN: Warm and dry. No rash. HEENT: Normocephalic. Atraumatic. Pupils equal and round. Mucous membranes pink and moist. CARDIOVASCULAR: Regular rate and rhythm. No murmur appreciated. RESPIRATORY: No accessory muscle use. Clear to auscultation. Breath sounds equal bilaterally. GASTROINTESTINAL: Abdomen soft, non-tender, nondistended. Normoactive bowel sounds x4. MUSCULOSKELETAL: No obvious deformities. Extremities without clubbing, cyanosis , or edema. NEUROLOGICAL: Awake and alert, oriented to self/place/month/president. No obvious cranial nerve deficits. Moving all extremities spontaneously. Normal speech. PSYCHIATRIC: Calm mood Results - Labs CBC & Chem 7: 08/16/18 04:47 08/16/18 04:47 Laboratory Results - last 24 hr 08/17/18 08/17/18 08/17/18 19:19 19:19 19:19 ESR 10 Ammonia 20 C-Reactive Protein 2.70 H Vitamin B12 295 TSH 2.120 - Imaging Chest X-Ray 08/15/18 04:10 CONCLUSION: Pacemaker in good position. Lungs are clear. Head CT 08/15/18 04:10 CONCLUSION: 1. Negative CT Head non contrast. . Hip X-Ray 08/15/18 04:10 CONCLUSION: No evidence of recent bony injury. Hip X-Ray 08/15/18 04:32 CONCLUSION: No evidence of an acute fracture. Calcific tendinopathy along the gluteal insertion Assessment and Plan - Plan 67-year-old male with history of emphysema, COPD, Parkinson's disease, Medtronic pacer/AICD in place, tobacco use, presents with acute onset of dizziness, fall, and hip pain. Fall/Syncope with Closed Head Injury: Acute, possibly secondary to Parkinson's disease, orthostatic hypotension, dehydration, rule out other etiologies. -Head CT reviewed and unremarkable -Orthostatics negative -Give IV fluid hydration -Monitor on telemetry, neurochecks -Interrogated Medtronic pacemaker, no acute findings -Echocardiogram unremarkable with EF 55-60% -ACS ruled out with negative serial cardiac enzymes x3, and patient with no complaints of chest pain -Consult PT, recommending rehab, however patient refusing, psych has determined that the patient does have capacity to make his own medical decisions , discussed discharge home alone at this time is unsafe due to his high risk of falls, patient agrees to work with physical therapy over the next few days with ultimate goal to return home, agrees to home health care at discharge Right hip pain: Status post fall -Right hip x-ray done in the ED, no acute findings -Pain control with Tylenol as needed add analgesics as needed -Symptoms improving, PT recommending a walker, case management to assist Intermittent Agitation: question capacity with this patient, attempted to leave AMA on 08/16 however witnessed extremely unsteady gait and was unable to ambulate to vehicle, also reported possible hallucination -consult psychiatry to help assist with determining capacity and evaluate reported hallucinations -Seen by psychiatry, determined patient does have capacity to make his own medical decisions, no further hallucinations to warrant any further psychiatric treatment SUDHA: Cr 1.31, no previous labs to compare, patient dry on exam -S/p IV fluid hydration -Avoid nephrotoxins -BMP improving, repeat creatinine 1.23 Hyponatremia: Sodium 131, likely secondary to dehydration -Given IV fluid hydration -Repeat Na 138, resolved Parkinson's disease: Chronic. Patient admits to stopping his Parkinson's medications secondary to side effects of nausea -PT consulted as above, patient with very poor balance and tremors -consulted neurology, appreciate assistance -Started on low-dose Sinemet 25/100 half tablet twice a day, and Inderal 10 mg 3 times daily -Monitor for improvement of tremors -Needs to follow-up as outpatient with neurology, will give referral at discharge Emphysema/COPD: Not in exacerbation, no wheezing on exam -Duo nebs as needed Tobacco use: Chronic -Counseled on cessation DVT prophylaxis: Teds/SCDs Discharge Planning: PT recommending rehab, however patient is refusing rehab placement. Concern for unsafe discharge right now as the patient is still very unsteady and requiring assistance with ambulation. Patient lives alone. He agrees to continuing daily physical therapy while in the hospital with goal to hopefully return home on 08/19. Patient was started on Sinemet and Inderal on 08/17 to hopefully improve tremors and ultimately ambulation.
[2018-08-18] MEDS: Lisinopril 10 MG Tablet PO SCH (09:12)
[2018-08-18] MEDS: Propranolol 10 MG Tablet PO SCH ×3 (09:13→18:25)
[2018-08-18] MEDS: Senna/Docusate Sodium 8.6/50 MG Tablet PO SCH ×2 (09:13→20:33)
[2018-08-19] MEDS: Lisinopril 10 MG Tablet PO SCH (09:09)
[2018-08-19] MEDS: Propranolol 10 MG Tablet PO SCH ×3 (09:10→18:06)
--- NOTE | 2018-08-19 10:19 | P.PNNEU ---
Subjective Subjective Comments: Subjective. He has his tremors are better although did have a little bit GI upset early in the morning after taking a pill Active Medications: Active Medications Acetaminophen (Tylenol) 650 mg PO Q4H PRN PRN Reason: Temp > 100.4 Al Hydroxide/Mg Hydroxide (Milk Of Magnesia Liq) 30 ml PO Q12H PRN PRN Reason: Mild Constipation Albuterol (Ventolin Hfa Inh) 2 puff INH Q4H PRN PRN Reason: SOB/wheezing Aspirin (Aspirin Chew) 81 mg PO DAILY [facility] Last Admin: 08/19/18 09:09 Dose: 81 mg Bisacodyl (Dulcolax Supp) 10 mg RECTAL DAILY PRN PRN Reason: SEVERE CONSITIPATION Carbidopa/Levodopa (Sinemet 25/100 Mg) 0.5 tab PO BID [facility] Last Admin: 08/19/18 09:10 Dose: 0.5 tab Cyanocobalamin (Vitamin B12 Inj) 1,000 mcg IM Q7D [facility] Last Admin: 08/18/18 09:18 Dose: 1,000 mcg Ipratropium [place] (Atrovent Neb) 0.5 mg NEB TID NEB [facility] Last Admin: 08/19/18 07:20 Dose: 0.5 mg Lactulose (Lactulose Liq) 30 ml PO DAILY PRN PRN Reason: SEVERE CONSITIPATION Lisinopril (Prinivil) 10 mg PO DAILY [facility] Last Admin: 08/19/18 09:09 Dose: 10 mg Ondansetron HCl (Zofran Inj) 4 mg IV.PUSH Q6H PRN PRN Reason: NAUSEA OR VOMITING Propranolol HCl (Inderal) 10 mg PO TID [facility] Last Admin: 08/19/18 09:10 Dose: Not Given Senna/Docusate Sodium (Ronda-Colace) 1 tab PO BID [facility] Last Admin: 08/18/18 20:33 Dose: Not Given Sennosides (Senokot) 17.2 mg PO Q12H PRN PRN Reason: Moderate Constipation Sodium Chloride (Ns Flush) 2 ml IV.FLUSH BID [facility] Last Admin: 08/19/18 09:12 Dose: 2 ml Sodium Chloride (Ns Flush) 2 ml IV.FLUSH PRN PRN PRN Reason: FLUSH AFTER USING IV ACCESS Allergies/Adverse Reactions: Allergies Allergy/AdvReac Type Severity Reaction Status Date / Time codeine Allergy Unknown unknown Verified 08/15/18 04:10 Review of Systems All other systems reviewed negative except as stated in HPI Physical Exam Vital signs: Vital Signs 08/18/18 12:45 08/18/18 13:10 08/18/18 16:16 Temperature 98.3 F 97.9 F Pulse Rate 67 63 74 Respiratory Rate 16 18 16 Blood Pressure 146/80 H 150/91 H Pulse Oximetry 97 97 08/18/18 19:17 08/18/18 19:20 08/18/18 23:38 Temperature 98.1 F 98.0 F Pulse Rate 75 77 65 Respiratory Rate 18 18 18 Blood Pressure 139/73 170/81 H Pulse Oximetry 95 96 08/19/18 03:31 08/19/18 07:22 08/19/18 07:36 Temperature 98.1 F 97.5 F L Pulse Rate 59 L 70 72 Respiratory Rate 18 20 16 Blood Pressure 149/73 H 188/87 H Pulse Oximetry 99 97 Intake & Output 08/18/18 08/19/18 08/19/18 18:59 06:59 18:59 Intake Total 360 / 360 Output Total 640 / 640 Balance -280 / -280 Intake: Oral 360 / 360 Output: Urine 640 / 640 Other: Date of Last Bowel Movement 08/14/18 08/18/18 Narrative: GENERAL: Well-nourished, well-developed male patient in NAD. Bilateral upper extremity tremor with slow movements and rigidity. SKIN: Warm and dry. No rash. HEENT: Normocephalic. Atraumatic. Pupils equal and round. Mucous membranes pink and moist. CARDIOVASCULAR: Regular rate and rhythm. No murmur appreciated. RESPIRATORY: No accessory muscle use. GASTROINTESTINAL: Abdomen soft, non-tender, nondistended. MUSCULOSKELETAL: No obvious deformities. Extremities without clubbing, cyanosis , or edema. NEUROLOGICAL: Oriented x3, follows motor request, exact movements intact no facial asymmetry facial lipoma may reduced blink rate mild hypophonic speech, eating breakfast, reduce tremors mild upper extremity rigidity moving all 470 gravity gait not assessed secondary fall risk. PSYCHIATRIC: Calm mood - Constitutional no acute distress - Routine HEENT Exam Head: Present: normocephalic Review/Management - Diagnosis (1) Parkinsons disease Code(s): G20 - Parkinson's disease Status: Acute Current Visit: Yes (2) Concussion with loss of consciousness Code(s): S06.0X9A - Concussion with loss of consciousness of unspecified duration, initial encounter Status: Acute Current Visit: Yes (3) Hip injury Code(s): S79.919A - Unspecified injury of unspecified hip, initial encounter Status: Acute Current Visit: Yes (4) Syncope Code(s): R55 - Syncope and collapse Status: Acute Current Visit: Yes - Review/Management Plan: Parkinsonism with kinetic tremor Did not tolerate Sinemet in the past although willing to try again Monitor for any emerging Lewy body dementia Recommendation Continue Sinemet and Inderal. Patient declines increasing the dose of either medication Could add a dose of carbidopa and if available to be given with Sinemet which can help reduce GI discomfort Low B12 will supplement Fall precautions Therapy Follow exam
[2018-08-19] MEDS: Senna/Docusate Sodium 8.6/50 MG Tablet PO SCH ×2 (10:52→21:58)
--- NOTE | 2018-08-19 15:04 | P.PNIM ---
Subjective Interval history: Patient seen working with physical therapy. He is able to ambulate slowly around bed with walker. Upper arm tremor noted however physical therapy says it is considerably less than yesterday. Gait stable but very slow. Patient tells me that he is doing much better and does not think he will need to go to rehab. No new complaints. No chest pain or shortness of breath. No nausea vomiting or diarrhea. Nursing does report that the patient complained of seeing a wombat in his room earlier today. Physical Exam Vital signs: Last Vital Signs Temp 98.1 F 08/19/18 11:55 Pulse 70 08/19/18 14:31 Resp 20 08/19/18 14:31 BP 135/73 08/19/18 11:55 Pulse Ox 95 08/19/18 11:55 Intake & Output 08/17/18 08/18/18 08/19/18 08/20/18 06:59 06:59 06:59 06:59 Intake Total 1080 / 1080 670 / 670 360 / 360 Output Total 225 / 225 2 / 2 640 / 640 Balance 855 / 855 668 / 668 -280 / -280 Weight 83.2 kg 83.2 kg Narrative: GENERAL: Well-nourished, well-developed adult male in no obvious distress. SKIN: Warm and dry. HEAD: Atraumatic. Normocephalic. CARDIOVASCULAR: Regular rate and rhythm. RESPIRATORY: No accessory muscle use. Clear to auscultation. Breath sounds equal bilaterally. GASTROINTESTINAL: Abdomen soft, non-tender, non-distended. Positive bowel sounds. MUSCULOSKELETAL: Extremities without clubbing, cyanosis, or edema. No obvious deformities. NEUROLOGICAL: Awake and alert. No obvious cranial nerve deficits. Bilateral upper arm tremor. Normal speech. PSYCHIATRIC: Pleasant and calm. Still experiencing visual hallucinations. Results Labs CBC & Chem 7: 08/16/18 04:47 08/16/18 04:47 Assessment and Plan Plan 67-year-old male with history of emphysema, COPD, Parkinson's disease, Medtronic pacer/AICD in place, tobacco use, presents with acute onset of dizziness, fall, and hip pain. Fall/Syncope with Closed Head Injury: Acute, possibly secondary to Parkinson's disease, orthostatic hypotension, dehydration, rule out other etiologies. -Head CT reviewed and unremarkable -Orthostatics negative -Give IV fluid hydration -Monitor on telemetry, neurochecks -Interrogated Medtronic pacemaker, no acute findings -Echocardiogram unremarkable with EF 55-60% -ACS ruled out with negative serial cardiac enzymes x3, and patient with no complaints of chest pain -Consult PT, recommending rehab, however patient refusing, psych has determined that the patient does have capacity to make his own medical decisions , discussed discharge home alone at this time is unsafe due to his high risk of falls, patient agrees to work with physical therapy over the next few days with ultimate goal to return home, agrees to home health care at discharge Right hip pain: Status post fall -Right hip x-ray done in the ED, no acute findings -Pain control with Tylenol as needed add analgesics as needed -Symptoms improving, PT recommending a walker, case management to assist Intermittent Agitation: question capacity with this patient, attempted to leave AMA on 08/16 however witnessed extremely unsteady gait and was unable to ambulate to vehicle, also reported possible hallucination -consult psychiatry to help assist with determining capacity and evaluate reported hallucinations. Likely that hallucinations are results of Parkinson's. -Seen by psychiatry, determined patient does have capacity to make his own medical decisions. SUDHA: Cr 1.31, no previous labs to compare, patient dry on exam -S/p IV fluid hydration -Avoid nephrotoxins -BMP improving, repeat creatinine 1.23 Hyponatremia: Sodium 131, likely secondary to dehydration -Given IV fluid hydration, resolved Parkinson's disease: Chronic. Patient admits to stopping his Parkinson's medications secondary to side effects of nausea -PT consulted as above, patient with very poor balance and tremors -consulted neurology, appreciate assistance -Started on low-dose Sinemet 25/100 half tablet twice a day, and Inderal 10 mg 3 times daily. Experienced some nausea with Sinemet. Will add carbidopa as per neurology recommendations. -Tremors improving. Gait improved. Still having visual hallucinations. -Needs to follow-up as outpatient with neurology, will give referral at discharge Emphysema/COPD: Not in exacerbation, no wheezing on exam -Duo nebs as needed Tobacco use: Chronic -Counseled on cessation DVT prophylaxis: Teds/SCDs Discharge Planning: TBD Progress Note: Quality VTE Deep Vein Thrombosis/Pulmonary Embolism Present on Admission: No
[2018-08-19 18:51] LABS: Baso # (Auto) 0.1 th/mm3 (0.0-0.2); Baso % (Auto) 1.2 % (0.0-2.0); Eos # (Auto) 0.1 th/mm3 (0.0-0.4); Eos % (Auto) 1.4 % (0.0-4.0); Hematocrit 39.8 % (39.0-51.0); Hemoglobin 14.2 gm/dL (13.0-17.0); Lymph # (Auto) 2.1 th/mm3 (1.0-4.8); Lymph % (Auto) 35.8 % (9.0-44.0); Mean Corpuscular HGB Conc 35.8 % (32.0-36.0); Mean Corpuscular Hemoglobin 34.3 pg (27.0-34.0); Mean Corpuscular Volume 95.9 fL (80.0-100.0); Mean Platelet Volume 8.3 fL (7.0-11.0); Mono # (Auto) 0.6 th/mm3 (0.0-0.9); Mono % (Auto) 9.3 % (0.0-8.0); Neut # (Auto) 3.1 th/mm3 (1.8-7.7); Neut % (Auto) 52.3 % (16.0-70.0); Platelet Count 139 th/mm3 (150-450); Red Blood Count 4.15 mil/mm3 (4.50-5.90); Red Cell Distribution Width 12.8 % (11.6-17.2); White Blood Count 5.9 th/mm3 (4.0-11.0)
[2018-08-19 19:09] LABS: Calcium 8.8 mg/dL (8.5-10.1); Potassium 3.7 meq/L (3.5-5.1)
[2018-08-20] MEDS: Senna/Docusate Sodium 8.6/50 MG Tablet PO SCH ×2 (08:36→20:05)
[2018-08-20] MEDS: Propranolol 10 MG Tablet PO SCH ×3 (08:37→19:39)
[2018-08-20] MEDS: Lisinopril 10 MG Tablet PO SCH (08:37)
--- NOTE | 2018-08-20 16:50 | P.PNIM ---
Subjective Interval history: Patient is seen sitting up in bed. He would like to go home but acknowledges that he is not able to adequately care for himself. Brother is at bedside and reports that patient has had multiple falls because of his unsteady gait and they are concerned about this. Nursing reports the patient took his medications this morning without difficulty. No nausea or vomiting after medication. Physical Exam Vital signs: Last Vital Signs Temp 98.5 F 08/20/18 15:28 Pulse 80 08/20/18 15:28 Resp 12 08/20/18 15:28 BP 117/54 L 08/20/18 15:28 Pulse Ox 95 08/20/18 15:28 Intake & Output 08/18/18 08/19/18 08/20/18 08/21/18 06:59 06:59 06:59 06:59 Intake Total 670 / 670 360 / 360 Output Total 640 / 640 Balance 668 / 668 -280 / -280 Weight 83.2 kg Narrative: GENERAL: Well-nourished, well-developed adult male in no obvious distress. SKIN: Warm and dry. HEAD: Atraumatic. Normocephalic. CARDIOVASCULAR: Regular rate and rhythm. RESPIRATORY: No accessory muscle use. Clear to auscultation. Breath sounds equal bilaterally. GASTROINTESTINAL: Abdomen soft, non-tender, non-distended. Positive bowel sounds. MUSCULOSKELETAL: Extremities without clubbing, cyanosis, or edema. No obvious deformities. NEUROLOGICAL: Awake and alert. No obvious cranial nerve deficits. Bilateral upper arm tremor. Normal speech. PSYCHIATRIC: Pleasant and calm. Still experiencing visual hallucinations. Results Labs CBC & Chem 7: 08/19/18 18:30 08/19/18 18:30 Assessment and Plan Plan 67-year-old male with history of emphysema, COPD, Parkinson's disease, Medtronic pacer/AICD in place, tobacco use, presents with acute onset of dizziness, fall, and hip pain. Fall/Syncope with Closed Head Injury: Acute, possibly secondary to Parkinson's disease, orthostatic hypotension, dehydration, rule out other etiologies. -Head CT reviewed and unremarkable -Orthostatics negative -Give IV fluid hydration -Monitor on telemetry, neurochecks -Interrogated Medtronic pacemaker, no acute findings -Echocardiogram unremarkable with EF 55-60% -ACS ruled out with negative serial cardiac enzymes x3, and patient with no complaints of chest pain -Consult PT, recommending rehab, however patient refusing, psych has determined that the patient does have capacity to make his own medical decisions , discussed discharge home alone at this time is unsafe due to his high risk of falls, patient agrees to work with physical therapy over the next few days with ultimate goal to return home; now agreeing to rehabilitation. Right hip pain: Status post fall -Right hip x-ray done in the ED, no acute findings -Pain control with Tylenol as needed add analgesics as needed -Symptoms improving, PT recommending a walker, case management to assist Intermittent Agitation: question capacity with this patient, attempted to leave AMA on 08/16 however witnessed extremely unsteady gait and was unable to ambulate to vehicle, also reported possible hallucination -consult psychiatry to help assist with determining capacity and evaluate reported hallucinations. Likely that hallucinations are results of Parkinson's. -Seen by psychiatry, determined patient does have capacity to make his own medical decisions. SUDHA: Cr 1.31, no previous labs to compare, patient dry on exam -S/p IV fluid hydration -Avoid nephrotoxins -BMP improving, repeat creatinine 1.23 Hyponatremia: Sodium 131, likely secondary to dehydration -Given IV fluid hydration, resolved Parkinson's disease: Chronic. Patient admits to stopping his Parkinson's medications secondary to side effects of nausea -PT consulted as above, patient with very poor balance and tremors -consulted neurology, appreciate assistance -Started on low-dose Sinemet 25/100 half tablet twice a day, and Inderal 10 mg 3 times daily. Experienced some nausea with Sinemet. -Tremors improving. Gait improved. Still having visual hallucinations. -Needs to follow-up as outpatient with neurology Emphysema/COPD: Not in exacerbation, no wheezing on exam -Duo nebs as needed Tobacco use: Chronic -Counseled on cessation DVT prophylaxis: Teds/SCDs Discharge Planning: [place] tomorrow Progress Note: Quality VTE Deep Vein Thrombosis/Pulmonary Embolism Present on Admission: No
[2018-08-21 04:39] VITALS: RESP 16
--- NOTE | 2018-08-21 08:16 | P.PNIM ---
Subjective Interval history: Patient seen lying quietly in bed. No hallucinations overnight. No new complaints and is agreeable to rehab. Physical Exam Vital signs: Last Vital Signs Temp 98.0 F 08/21/18 07:41 Pulse 64 08/21/18 07:41 Resp 16 08/21/18 07:41 BP 179/86 H 08/21/18 07:41 Pulse Ox 98 08/21/18 07:41 Intake & Output 08/19/18 08/20/18 08/21/18 08/22/18 06:59 06:59 06:59 06:59 Intake Total 360 / 360 680 / 680 Output Total 640 / 640 350 / 350 Balance -280 / -280 330 / 330 Narrative: GENERAL: Well-nourished, well-developed adult male in no obvious distress. SKIN: Warm and dry. HEAD: Atraumatic. Normocephalic. CARDIOVASCULAR: Regular rate and rhythm. RESPIRATORY: No accessory muscle use. Clear to auscultation. Breath sounds equal bilaterally. GASTROINTESTINAL: Abdomen soft, non-tender, non-distended. Positive bowel sounds. MUSCULOSKELETAL: Extremities without clubbing, cyanosis, or edema. No obvious deformities. NEUROLOGICAL: Awake and alert. No obvious cranial nerve deficits. Bilateral upper arm tremor. Normal speech. PSYCHIATRIC: Pleasant and calm. Results Labs CBC & Chem 7: 08/19/18 18:30 08/19/18 18:30 Assessment and Plan Plan 67-year-old male with history of emphysema, COPD, Parkinson's disease, Medtronic pacer/AICD in place, tobacco use, presents with acute onset of dizziness, fall, and hip pain. Fall/Syncope with Closed Head Injury: Acute, possibly secondary to Parkinson's disease, orthostatic hypotension, dehydration, rule out other etiologies. -Head CT reviewed and unremarkable -Orthostatics negative -Give IV fluid hydration -Monitor on telemetry, neurochecks -Interrogated Medtronic pacemaker, no acute findings -Echocardiogram unremarkable with EF 55-60% -ACS ruled out with negative serial cardiac enzymes x3, and patient with no complaints of chest pain -Consult PT, recommending rehab, however patient refusing, psych has determined that the patient does have capacity to make his own medical decisions , discussed discharge home alone at this time is unsafe due to his high risk of falls, patient agrees to work with physical therapy over the next few days with ultimate goal to return home; now agreeing to rehabilitation. Right hip pain: Status post fall -Right hip x-ray done in the ED, no acute findings -Pain control with Tylenol as needed add analgesics as needed -Symptoms improving, PT recommending a walker, case management to assist Intermittent Agitation: question capacity with this patient, attempted to leave AMA on 08/16 however witnessed extremely unsteady gait and was unable to ambulate to vehicle, also reported possible hallucination -consult psychiatry to help assist with determining capacity and evaluate reported hallucinations. Likely that hallucinations are results of Parkinson's. -Seen by psychiatry, determined patient does have capacity to make his own medical decisions. SUDHA: Cr 1.31, no previous labs to compare, patient initially dry on exam; now improved -S/p IV fluid hydration -Avoid nephrotoxins -BMP improving, repeat creatinine 1.22 Hyponatremia: Sodium 131, likely secondary to dehydration -Given IV fluid hydration, resolved Parkinson's disease: Chronic. Patient admits to stopping his Parkinson's medications secondary to side effects of nausea -PT consulted as above, patient with very poor balance and tremors -consulted neurology, appreciate assistance -Started on low-dose Sinemet 25/100 half tablet twice a day, and Inderal 10 mg 3 times daily. Initial experienced some nausea with Sinemet; none now. -Tremors improving. Gait improved. Some mild visual hallucinations. -Needs to follow-up as outpatient with neurology Emphysema/COPD: Not in exacerbation, no wheezing on exam -Duo nebs as needed Tobacco use: Chronic -Counseled on cessation DVT prophylaxis: Teds/SCDs Discharge Planning: [place] today Progress Note: Quality VTE Deep Vein Thrombosis/Pulmonary Embolism Present on Admission: No
--- NOTE | 2018-08-21 08:21 | P.DS ---
DS: Providers Date of admission: 08/15/18 06:40 Primary care physician: No Primary Care Physician Consults: 08/16/18 16:06 Consult to Psychiatry Routine Consulting Provider: Jemal Pineda Reason for Consultation: hallucinations, question capacity to make medical decisions in this patient, attempting to leave AMA Notified:: Office Spoke with:: Eva Date Notified:: 08/16/18 Time Notified:: 16:17 Ordering Provider: MAGDI 08/17/18 12:50 Consult to Neurology Routine Consulting Provider: Song Meyer Reason for Consultation: reported Parkinson's disease, severe tremors, difficulty ambulating, unsteady gait with recent falls. Notified:: Service Spoke with:: CHETNA Date Notified:: 08/17/18 Time Notified:: 12:59 Ordering Provider: MAGDI 08/18/18 08:55 HUB Only Consult Order Routine Consulting Provider: Adrián Knight 08/20/18 10:58 HUB Only Consult Order Routine Consulting Provider: Adrián Knight Brief History from admission: 67-year-old male with history of emphysema, COPD , Parkinson's disease, Medtronic pacer/AICD in place, tobacco use, presents with acute onset of dizziness, fall, and hip pain. Patient reports last night he was sleeping in bed, got up to use the restroom, was standing while urinating at the toilet when he all of a sudden became dizzy, fell backwards and hit the back of his head on the bathroom wall, and fell to the ground. He states he believes he briefly lost consciousness after he hit his head on the wall. He states he was on the floor for a couple hours before he was able to crawl out of the bathroom and pull himself up to call 911. He was transported via [facility]. Patient complains of constant 7/10 right anterior hip pain with associated difficulty ambulating, denies any numbness or tingling. He states he has a constant tremor of all extremities secondary to his Parkinson's disease. He denies any chest pain, palpitations, shortness of breath, or nausea /vomiting associated with the episode. He denies any recent fever/chills, cough , abdominal pain, or diarrhea. States he has been eating fairly well. He lives alone, ambulates with a cane, and does still drive. States his closest family lives in [place]. He has no other medical complaints at this time. Of note, patient states he stopped taking his Parkinson's medications because it made him nauseous. He does not know his neurologist or certified orthoptist is. He also is unsure why he has a pacer/AICD. DS: Summary 67-year-old male with history of emphysema, COPD, Parkinson's disease, [employer]tr[employer] pacer/AICD in place, tobacco use, presents with acute onset of dizziness, fall, and hip pain. Fall/Syncope with Closed Head Injury: Secondary to Parkinson's disease and dehydration. -Head CT reviewed and unremarkable -Orthostatics negative -Give IV fluid hydration -Monitor on telemetry, neurochecks -Interrogated Medtronic pacemaker, no acute findings -Echocardiogram unremarkable with EF 55-60% -ACS ruled out with negative serial cardiac enzymes x3, and patient with no complaints of chest pain -Consult PT, recommending rehab Right hip pain: Status post fall -Right hip x-ray done in the ED, no acute findings -Pain control with Tylenol as needed add analgesics as needed -Symptoms improving, PT recommending a walker, case management to assist Intermittent Agitation: question capacity with this patient, attempted to leave AMA on 08/16 however witnessed extremely unsteady gait and was unable to ambulate to vehicle, also reported possible hallucination -consult psychiatry to help assist with determining capacity and evaluate reported hallucinations. Likely that hallucinations are results of Parkinson's. -Seen by psychiatry, determined patient does have capacity to make his own medical decisions. SUDHA: Cr 1.31, no previous labs to compare, patient initially dry on exam; now improved -S/p IV fluid hydration -Avoid nephrotoxins -BMP improving, repeat creatinine 1.22 Hyponatremia: Sodium 131, likely secondary to dehydration -Given IV fluid hydration, resolved Parkinson's disease: Chronic. Patient admits to stopping his Parkinson's medications secondary to side effects of nausea -PT consulted as above, patient with very poor balance and tremors -consulted neurology, appreciate assistance -Started on low-dose Sinemet 25/100 half tablet twice a day, and Inderal 10 mg 3 times daily. Initial experienced some nausea with Sinemet; none now. -Tremors improving. Gait improved. Some mild visual hallucinations. -Needs to follow-up as outpatient with neurology Emphysema/COPD: Not in exacerbation, no wheezing on exam -Duo nebs as needed Tobacco use: Chronic -Counseled on cessation Time Spent with Patient Total time spent providing and/or coordinating discharge services: <30 min Quality: VTE Deep Vein Thrombosis/Pulmonary Embolism Present on Admission: No Exam Narrative Exam Narrative: GENERAL: Well-nourished, well-developed adult male in no obvious distress. SKIN: Warm and dry. HEAD: Atraumatic. Normocephalic. CARDIOVASCULAR: Regular rate and rhythm. RESPIRATORY: No accessory muscle use. Clear to auscultation. Breath sounds equal bilaterally. GASTROINTESTINAL: Abdomen soft, non-tender, non-distended. Positive bowel sounds. MUSCULOSKELETAL: Extremities without clubbing, cyanosis, or edema. No obvious deformities. NEUROLOGICAL: Awake and alert. No obvious cranial nerve deficits. Bilateral upper arm tremor. Normal speech. PSYCHIATRIC: Pleasant and calm. Results Impressions ITS Impressions Chest X-Ray 08/15/18 04:10 CONCLUSION: Pacemaker in good position. Lungs are clear. Head CT 08/15/18 04:10 CONCLUSION: 1. Negative CT Head non contrast. . Hip X-Ray 08/15/18 04:32 CONCLUSION: No evidence of an acute fracture. Calcific tendinopathy along the gluteal insertion Discharge Plan Discharge Disposition Patient Disposition: [facility] Inpatient Discharge Condition Condition: Stable Discharge Order Discharge Orders: Discharge Order (Routine); Ordered 08/21/18 Ordered By: Ruht Bains ED Use Only Admit Order (Routine); Ordered 08/15/18 Ordered By: Yakov Murray Discharge Details Anticipated Discharge Date: 08/21/18 Diagnosis: Concussion with loss of consciousness, Hip injury, Syncope Physicians Team ED Provider: Yakov Murray Primary Care Provider: Primary Care Danni,Riya Attending Provider: Hailey Boudreaux Other Providers: Jemal Pineda ; Song Meyer ; Maiao Clarendon,Adrián Rxs /Orders / Referrals /Forms Prescriptions: New carbidopa-levodopa 25-100 mg Tablet 0.5 tab PO BID Qty: 60 RF: 0 propranolol 10 mg Tablet 10 mg PO TID Qty: 90 RF: 0 Continue aspirin 81 mg Tablet,Chewable 81 mg PO DAILY RF: 0 simvastatin 80 mg Tablet 40 mg PO QPM RF: 0 gabapentin 100 mg Capsule 100 mg PO TID RF: 0 lisinopril 40 mg Tablet 40 mg PO DAILY RF: 0 Discontinued metoprolol succinate [Toprol XL] 200 mg Tablet Extended Release 24 Hr 100 mg PO DAILY RF: 0 indomethacin capsule 25 mg PO BID RF: 0 Referrals: Primary Care Riya Razo [Primary Care Provider] - See Instructions Discharge Interventions Interventions: Discharge Planning - Case Management Last Done: 08/20/18 09:57 Status ED Status: Left Department
[2018-08-21] MEDS: Lisinopril 10 MG Tablet PO SCH (09:22)
[2018-08-21] MEDS: Propranolol 10 MG Tablet PO SCH (09:23)
[2018-08-21] MEDS: Senna/Docusate Sodium 8.6/50 MG Tablet PO SCH (09:23)
[2018-08-21 11:56] VITALS: BP 119/75; PULSE 76; TEMP 97.9; O2SAT 97
== END 2018-08-21 12:43 ==
LOC: NEDA 03:39 → NEPC 03:39 → NEPHCDU 11:53 → UNDODISOB 08-16 15:20 → NEPHCDU 08-16 16:34
PROVIDERS: ADMIT Internal Medicine; ATTEND Internal Medicine
CPT/HCPCS: 70450; 71010; 71045; 73502; 80048; 80053; 80307; 81001; 82140; 82607; 84443; 84484; 85025; 85651; 85652; 86140; 93005; 93306; 94640; 94665; 96360; 96361; 96372; 97110; 97116; 97162; 97530; 99285; G0378; J3420; J7030